=== PATIENT | male | born 1985 | race Caucasian/White ===

== ENCOUNTER 2021-11-01 15:10 | Emergency (ER) | payer OTHER, SELFPAY ==
[2021-11-01] VITALS (21 sets, daily range): BP systolic 117–165; BP diastolic 56–82; PULSE 75–92; RESP 14–26; TEMP 36.8; O2SAT 97–99
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
[2021-11-01 15:28] LABS: Add Manual Diff / Slide Review NO; Basophils Absolute Auto 0 /uL (0-100); Basophils Percent Auto 0.4 % (0-2); Eosinophils Absolute Auto 0 /uL (0-450); Eosinophils Percent Auto 0.7 % (2-4); Hematocrit 43.6 % (41-53); Hemoglobin 15.3 g/dL (13.5-17.5); Lymphocytes Absolute Auto 2300 /uL (1100-4500); Lymphocytes Percent Auto 42.3 % (25-40); Mean Corpuscular Hemoglobin 30.3 PG (26-34); Mean Corpuscular Volume 86.5 fL (80-100); Monocytes Absolute Auto 400 /uL (0-900); Monocytes Percent Auto 7.8 % (3-14); Neutrophils Absolute Auto 2700 /uL (1500-7000); Neutrophils Percent Auto 48.8 % (50-75); Platelet Count 222 X10^3/uL (150-400); Red Blood Cell Count 5.05 X10^6/uL (4.5-5.9); Red Cell Distribution Width 13.3 % (11.6-14.8); White Blood Cell Count 5.5 X10^3/uL (4.5-11.0)
[2021-11-01 15:35] LABS: Alanine Aminotransferase 59 IU/L (<50); Albumin 4.8 g/dL (3.5-5.0); Albumin Globulin Ratio 1.5 (1.0-2.8); Alkaline Phosphatase 50 U/L (38-126); Aspartate Aminotransferase 40 IU/L (17-59); BUN Creatinine Ratio 12.8 (6-22); Bilirubin Total 0.5 mg/dL (0.2-1.3); Blood Urea Nitrogen 12 mg/dL (9-20); Calcium 9.4 mg/dL (8.4-10.2); Carbon Dioxide 28 mmol/L (22-32); Chloride 103 mmol/L (98-107); Estimated Glomerular Filt Rate > 60 mL/min (>60); Globulin 3.1 g/dL (1.7-4.1); Glucose 140 mg/dL (70-100); HEMOLYSIS < 15 (0-50); Lipase 100 U/L (23-300); Potassium 3.6 mmol/L (3.4-5.1); Sodium 138 mmol/L (137-145); Total Protein 7.9 g/dL (6.3-8.2)
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
[2021-11-01 16:06] LABS: Appearance Urine UA CLEAR; Bilirubin Urine UA NEGATIVE (NEGATIVE); Color Urine UA YELLOW; Glucose Urine UA NEGATIVE (Negative); Ketones Urine UA NEGATIVE (NEGATIVE); Leukocyte Esterase Urine UA NEGATIVE (NEGATIVE); Nitrite Urine UA NEGATIVE (Negative); Occult Blood Urine UA TRACE-INTACT (Negative); Protein Urine UA NEGATIVE (Negative); Specific Gravity Urine UA 1.015 (1.000-1.035); Urobilinogen Urine UA 0.2 E.U./dL (0.2)
[2021-11-01 16:11] LABS: Amorphous Sediment Urine 1+; Bacteria Urine None Seen; Culture Indicated Urine Cult Not Indicated; RBC Urine 0-1/HPF (0-5/HPF); WBC Urine None Seen (0-5/HPF)
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
[2021-11-01] MEDS: KETOROLAC 30 MG/ML VIAL IV (16:40)
== END 2021-11-01 18:29 | disposition home or self-care (01) ==
PROVIDERS: Emergency Provider Physician Assistant
DX: S06.0X9A Concussion with loss of consciousness of unspecified duration, initial encounter (principal); M79.661 Pain in right lower leg; M25.522 Pain in left elbow; M25.571 Pain in right ankle and joints of right foot; M54.6 Pain in thoracic spine; V49.40XA Driver injured in collision with unspecified motor vehicles in traffic accident, initial encounter
CPT/HCPCS: 36415; 70450; 71045; 71260; 72125; 72170; 73070; 73600; 74177; 80053; 81001; 83690; 85025; 96374; 99285; J1885; Q9967

== ENCOUNTER 2021-12-14 10:28 | Emergency (ER) | payer OTHER, SELFPAY ==
[2021-12-14 10:48] VITALS: BP 122/84; PULSE 84; RESP 12; TEMP 36.6; O2SAT 98; BMI 27.2
[2021-12-14 11:24] LABS: COVID19 -Nasal RAPID POSITIVE (Negative)
[2021-12-14 12:48] VITALS: BP 120/70; PULSE 80; RESP 18; TEMP 36.6; O2SAT 99
--- NOTE | 2021-12-14 13:05 | ED.URI ---
HPI - URI/Sore Throat <RADHA Andrade - Last Filed: 12/14/21 13:09> General Chief Complaint: Upper Respiratory Symptoms Stated Complaint: Sore throat Time Seen by Provider: 12/14/21 12:09 History of Present Illness HPI Narrative: This is a 36-year-old male who presents to the emergency department with three days of a runny nose and a sore throat, mild cough, denies any fever chills, nausea vomiting, shortness of breath or wheezing. Patient denies any past medical problems, states he is COVID vaccinated x2. States that he feels fatigued and some neck soreness. He denies any chest pain, productive cough, shortness of breath with exertion, weakness, or any sensation changes. Related Data Previous Rx's Medication Instructions Recorded cyclobenzaprine 10 mg tablet 10 mg PO Q8H PRN muscle spasm #21 11/01/21 tabs ibuprofen 800 mg tablet 800 mg PO Q8H PRN pain #21 tabs 11/01/21 benzocaine 15 mg-menthol 3.6 mg 1 lavell mucous membrane Q2-4H PRN 12/14/21 lozenges (Cepacol Sore Throat sore throat #16 ea (benzocaine-menthol)) clotrimazole 1 % topical cream 1 applic topical BID 2 weeks #30 12/14/21 grams Allergies Allergy/AdvReac Type Severity Reaction Status Date / Time No Known Drug Allergies Allergy Verified 12/14/21 10:50 Review of Systems <RADHA Andrade - Last Filed: 12/14/21 13:09> Review of Systems Narrative: General: denies fever, chills, endorses fatigue Head/Neck: denies headache, states that his neck feels sore but has full range of motion Eyes: denies visual changes, eye pain Cardio: denies chest pain, palpitations Respiratory: denies shortness of breath, endorses a mild cough with a sore throat GI: denies abdominal pain, nausea, vomiting, or diarrhea : denies dysuria, hematuria or flank pain MSK: denies new joint pain, muscle weakness or swelling Skin: denies rash, itching or wound Neuro: denies numbness, tingling, dizziness Patient History <RADHA Andrade - Last Filed: 12/14/21 13:09> Social History Smoking Status: Never smoker Smoking Status: Never smoker Substance Use Type: does not use Exam <RADHA Andrade - Last Filed: 12/14/21 13:09> Narrative Exam Narrative: Independently reviewed vitals signs and nursing notes. General: cooperative, comfortable, in no acute distress, well groomed Head: atraumatic, symmetrical facial expressions Neck: supple, no lymphadenopathy, full range of motion intact able to put chin to chest, no stridor, no reduced range of motion Eyes: equal round and reactive, EOMI, conjunctiva normal Nose: nares patent, no rhinorrhea Mouth/Throat: moist mucus membranes, posterior pharynx is erythematous without exudate or tonsillar adenopathy Cardiovascular: regular rate and rhythm, without tachycardia no peripheral edema, warm extremities Respiratory: normal effort, able to speak in complete sentences, no audible wheezing, stridor, or rales. No retractions or tachypnea. GI: abdomen soft, nontender to palpation, nondistended, no masses, no exquisite tenderness with exam, without guarding or rebound. MSK: moves all extremities, neurovascularly intact, no weakness, normal tone Skin: brisk capillary refill, no rash, no erythema Neuro: normal speech and cognition, A&O x3 Psych: mental status is grossly normal, congruent mood, normal affect, pleasant and cooperative Initial Vital Signs Initial Vital Signs: Vital Signs Temperature 97.9 F 12/14/21 10:48 Pulse Rate 84 12/14/21 10:48 Respiratory Rate 12 12/14/21 10:48 Blood Pressure 122/84 12/14/21 10:48 Pulse Oximetry 98 12/14/21 10:48 Oxygen Delivery Method 12/14/21 10:48 <Diandra Bueno DO - Last Filed: 12/15/21 07:15> Initial Vital Signs Initial Vital Signs: Vital Signs Temperature 97.9 F 12/14/21 10:48 Pulse Rate 84 12/14/21 10:48 Respiratory Rate 12 12/14/21 10:48 Blood Pressure 122/84 12/14/21 10:48 Pulse Oximetry 98 12/14/21 10:48 Oxygen Delivery Method 12/14/21 10:48 Course <RADHA Andrade - Last Filed: 12/14/21 13:09> Orders Ordered: ED Orders 12/14/21 10:56 COVID19 -Nasal RAPID/Pre-Proc Stat Vital Signs Vital signs: Vital Signs - 8 hr 12/14/21 10:48 12/14/21 12:48 Temperature 97.9 F 98 F Pulse Rate 84 80 Respiratory Rate 12 18 Blood Pressure 122/84 120/70 Pulse Oximetry 98 99 Oxygen Delivery Method Room Air <Diandra Bueno DO - Last Filed: 12/15/21 07:15> Orders Ordered: ED Orders 12/14/21 10:56 COVID19 -Nasal RAPID/Pre-Proc Stat Vital Signs Vital signs: Vital Signs - 8 hr 12/14/21 10:48 12/14/21 12:48 Temperature 97.9 F 98 F Pulse Rate 84 80 Respiratory Rate 12 18 Blood Pressure 122/84 120/70 Pulse Oximetry 98 99 Oxygen Delivery Method Room Air MDM - URI/Sore Throat <RADHA Andrade - Last Filed: 12/14/21 13:09> Lab Data Labs: Lab Results 12/14/21 Range/Units 10:56 SARS-CoV-2 (PCR) Positive H (Negative) MDM Narrative Medical decision making narrative: This is a 36-year-old male who presents to the emergency department for three days of runny nose, sore throat, mild cough, fatigue without fever or chills. He tested COVID (+) on day [4] of symptoms without hypoxia, respiratory distress, dehydration, or focal exam to suggest secondary bacterial infection. Discussed CDC guidelines for quarantine, mask wearing, physical distancing, and infection prevention measures such as frequent handwashing. Discussed supportive treatments: Tylenol/Motrin as needed for pain/fever. OTC decongestant medications and/or antihistamines for symptomatic relief. Maintain adequate fluid intake. Follow-up with PCP as directed. Return to clinic/ER instructions discussed for new, not improving, or worsening symptoms. All questions answered. [place], recommended to quarantine for five days from onset of symptoms per CDC guidelines, patient also had one small lesion of ringworm on his left forearm, states he had been using essential oil but it had gotten any better. Patient was prescribed clotrimazole for this, [place] Patient is appropriate and amenable to discharge home. Vital signs are stable on repeat examination is unremarkable. Patient has been informed of results. Patient has been given strict return to ER precautions for any new or worsening symptoms. Patient understands to follow up closely with outpatient providers as instructed. Patient understands plan and agrees to discharge home. All questions and concerns answered at this time. <Diandra Bueno, - Last Filed: 12/15/21 07:15> Lab Data Labs: Lab Results 12/14/21 Range/Units 10:56 SARS-CoV-2 (PCR) Positive H (Negative) Discharge Plan Departure Patient Disposition: Home Clinical Impression: COVID-19, Ringworm Instructions: Ringworm, DI for COVID-19 (Suspected or Confirmed ) Activity Restrictions/Additional Instructions: *You have been diagnosed with COVID-19. You are on day four of your symptoms, please continue to quarantine for the CDC recommended a five days from onset of symptoms. Please stay hydrated, use Tylenol or Motrin as needed for fever or pain, if you develop any shortness of breath, wheezing, difficulty breathing please return to the emergency department. If you have increased congestion, try Flonase or Claritin, throat lozenges can be helpful for your throat, try this cream twice a day for the next couple of weeks until it resolves. Return to emergency department for any new or worsening symptoms, is was nice to meet you today, I hope you feel better soon. *What to do: *Please continue to take your regular medications as directed. [ x] New medication prescriptions sent to your pharmacy: [[facility] [place] ] [ ] New medication written as a paper prescription [ ] No new medications given *Please follow up with your primary care provider in 2-3 days, call for an appointment. Let them know you were seen in the Emergency Department and that we asked that you be seen for follow-up. We will electronically transmit a record of today's note if your PCP is in our system *If you do not have a primary care provider please contact [phone] to establish care with one of the [facility] primary care providers. *Return to Emergency Department if you should have any new, worsening or concerning symptoms, such as [fever greater than 101F, chills, worsening pain, persistent vomiting or other bothersome symptoms] Prescriptions: New clotrimazole 1 % cream 1 applic topical BID 14 Days Qty: 30 0RF Cepacol Sore Throat (arun-men) 15-3.6 mg lozenge 1 lavell mucous membrane Q2-4H PRN (Reason: sore throat) Qty: 16 0RF No Action cyclobenzaprine 10 mg tablet 10 mg PO Q8H PRN (Reason: muscle spasm) Qty: 21 0RF ibuprofen 800 mg tablet 800 mg PO Q8H PRN (Reason: pain) Qty: 21 0RF Visit Report Forms: Patient Portal/API <Diandra Bueno DO - Last Filed: 12/15/21 07:15> Cosign ED Attending Cosmylesature Attestation: I was immediately available in the department for consultation. Documentation has been reviewed. I agree with assessment and plan.
== END 2021-12-14 12:48 | disposition home or self-care (01) ==
PROVIDERS: Emergency Medicine; Emergency Provider Nurse Practitioner Critical Care Medicine
DX: U07.1 COVID-19 (principal); B35.4 Tinea corporis
CPT/HCPCS: 87635; 99281; 99282; C9803

== ENCOUNTER 2022-05-23 17:59 | Emergency (ER) | payer OTHER, SELFPAY ==
[2022-05-23 19:21] VITALS: BP 114/76; PULSE 75; RESP 18; TEMP 36.9; O2SAT 97; BMI 27.2
[2022-05-24] MEDS: LIDOCAINE 2% INJ SDV 5 ML INJ (00:15)
--- NOTE | 2022-05-24 02:40 | ED_ITS ---
HPI - Skin/Abscess/Foreign Bdy General Chief complaint: Skin/Abscess/Foreign Body Stated complaint: Cyst on back Time Seen by Provider: 05/23/22 19:32 Source: patient Mode of arrival: Ambulatory Limitations: no limitations History of Present Illness HPI narrative: Patient is a healthy 36-year-old male who presents with cyst on his rate scapula. He says it has been there is before it has been there for about 1 mo nth. He has previously had antibiotics for. Over last couple days it has gotten bigger and a little bit more painful. No fever or chills. It is mildly erythematous. Started draining fluid serosanguineous yesterday Related Data Previous Rx's Medication Instructions Recorded cyclobenzaprine 10 mg tablet 10 mg PO Q8H PRN muscle spasm #21 11/01/21 tabs ibuprofen 800 mg tablet 800 mg PO Q8H PRN pain #21 tabs 11/01/21 benzocaine 15 mg-menthol 3.6 mg 1 lavell mucous membrane Q2-4H PRN 12/14/21 lozenges (Cepacol Sore Throat sore throat #16 ea (benzocaine-menthol)) sulfamethoxazole 800 1 tab PO BID 7 days #14 tabs 05/24/22 mg-trimethoprim 160 mg tablet (Bactrim DS) Allergies Allergy/AdvReac Type Severity Reaction Status Date / Time No Known Drug Allergies Allergy Verified 12/14/21 10:50 Review of Systems Review of Systems Narrative: GENERAL: Denies chills,fever HEENT: Denies throat pain RESPIRATORY: Denies dyspnea, cough, wheezing CARDIOVASCULAR: Denies chest pain, palpitations GASTROINTESTINAL: Denies nausea, vomiting MUSCULOSKELETAL: Denies extremity pain, injury SKIN: See HPI NEUROLOGIC: Denies weakness, dizziness, headache, numbness 8 point review of systems is negative except for those stated above and HPI Patient History Social History Smoking Status: Never smoker Smoking Status: Never smoker Substance Use Type: does not use Exam Initial Vital Signs Initial Vital Signs: Vital Signs Temperature 98.5 F 05/23/22 19:21 Pulse Rate 75 05/23/22 19:21 Respiratory Rate 18 05/23/22 19:21 Blood Pressure 114/76 05/23/22 19:21 Pulse Oximetry 97 05/23/22 19:21 Oxygen Delivery Method 05/23/22 19:21 GENERAL: Well-appearing, well-nourished and in no acute distress. CARDIOVASCULAR: peripheral pulses in tact, cap refill <2 sec RESPIRATORY: No respiratory distress, speaks in full sentences without difficulty EXTREMITIES: Normal range of motion, no clubbing or edema. Neurovascularly intact NEUROLOGICAL: Cranial nerves II through XII grossly intact. Normal gait and speech. SKIN right scapula very fluctuant area 5 cm x 4 cm no induration already draining some serosanguineous fluid Procedures Abscess I/D I&D #1: Side (if applicable): right Local Anesthetic: lidocaine 1% Amount of anesthesia used (mL): 5 Technique: incised with #11 blade Amount of fluid expressed (mL): 10 Irrigation: No Packing used?: none Course Orders Ordered: ED Orders 05/24/22 03:00 Wound Culture and Gram Stain Stat Discontinued Medications Lidocaine HCl (Lidocaine 2% Inj Sdv) 5 ml INJ INTRA-OP ONE Stop: 05/23/22 19:34 Last Admin: 05/24/22 00:15 Dose: 5 ml Documented By: DAVION Vital Signs Vital signs: Vital Signs - 8 hr 05/24/22 03:21 Temperature 97.4 F L Pulse Rate 64 Respiratory Rate 14 Blood Pressure 118/66 Pulse Oximetry 99 Oxygen Delivery Method Room Air MDM - Skin/Abscess/Foreign Bdy MDM Narrative Medical decision making narrative: Patient has had an in a shoulder her about a month. He is not septic mildly erythematous gotten worse over last couple of days. His probably a cyst it does not seem to be as fluctuant or indurated as an abscess. Incision and drainage got quite a bit out. Feeling better will start him on antibiotics and culture is pending Discharge Plan Departure Patient Disposition: Home Clinical Impression: Infected cyst of right shoulder Instructions: DI for Incision and Drainage of a Skin Abscess Activity Restrictions/Additional Instructions: *You have been diagnosed with abscess/cyst *What to do: At this time you may need to have surgery is due to recurring cyst. *Continue to take medications as directed Bactrim 1 tablet twice a day for 7 days--> sent o carmenza *Follow up with your primary care provider in 2-3 days or call [phone] *Return to ER if you should have increasing redness fever drainage pain or any new, worsening or concerning symptoms Prescriptions: New sulfamethoxazole-trimethoprim [Bactrim DS] 800-160 mg tablet 1 tab PO BID 7 Days Qty: 14 0RF No Action cyclobenzaprine 10 mg tablet 10 mg PO Q8H PRN (Reason: muscle spasm) Qty: 21 0RF ibuprofen 800 mg tablet 800 mg PO Q8H PRN (Reason: pain) Qty: 21 0RF Cepacol Sore Throat (arun-men) 15-3.6 mg lozenge 1 lavell mucous membrane Q2-4H PRN (Reason: sore throat) Qty: 16 0RF Referrals: ProviderSamanta [Primary Care Provider] - Visit Report Forms: Patient Portal/API
[2022-05-24 03:21] VITALS: BP 118/66; PULSE 64; RESP 14; TEMP 36.3; O2SAT 99
== END 2022-05-24 03:20 | disposition home or self-care (01) ==
PROVIDERS: Emergency Provider Emergency Medicine
DX: L02.212 Cutaneous abscess of back [any part, except buttock and flank] (principal)
CPT/HCPCS: 10060; 87070; 87205; 99283